=== PATIENT | female | born 1955 | race American Indian/Alaskan Native ===

== ENCOUNTER → 2018-06-29 | Day surgery (SDC) | payer MEDICARE ==
[~2018-06-29] MED LIST: DIPRIVAN 10 MG/ML IV ONE; NACL 0.9% 1000 ML 1,000 ML IV SCH; WATER FOR IRRIG STERILE IR ONE; XYLOCAINE MPF 2% ONE
--- NOTE | 2018-06-29 08:35 | Short Stay Summary ---
Short Stay Documentation - Allergies and Medications Current Medications: Allergies No Known Allergies Allergy (Verified 06/29/18 07:43) Home Medications Medication Instructions Recorded Confirmed Last Taken Type No Known Home Medications [No 06/29/18 06/29/18 Unknown History Reported Home Medications] Active Medications Sodium Chloride (Nacl 0.9% 1000 Ml) 1,000 mls @ 50 mls/hr IV DIRECT RENU Last Admin: 06/29/18 07:43 Dose: 50 mls/hr - Brief post op/procedure progress note Date of procedure: 06/29/18 Pre-op diagnosis: 1. Abnormal CT scan 2. Epigastric pain Post-op diagnosis: same (1. GERD 2. gastritis) Procedure: EGD with biopsy Anesthesia: MAC Findings: as above Surgeon: SUNG DOUGLASS Estimated blood loss: none Pathology: list (1. Antrum 2. Body of stomach) Specimen disposition: to lab Condition: stable - Disposition Condition at discharge: Stable Disposition: [id number] TO HOME OR SELFCARE Short Stay Discharge Plan Activity: no restrictions Weight Bearing Status: Full Weight Bearing Diet: regular Additional Instructions: Post Sedation D/C Instructions When you return home you may resume your regular diet unless otherwise directed. -Go directly home from the hospital and rest quietly. You may resume normal activities tomorrow. -Do NOT drive, return to work, operate any machinery or make any important personal or business decisions today. -Do NOT drink any alcohol or take nerve or sleeping drugs. They add to the effects of the medicine still present in your body. Follow up with: SAMANTHA GILES JR, MD [Primary Care Provider] - 7 Days
[2018-06-29 09:39] VITALS: BP 142/71
== END | disposition home or self-care (01) ==
LOC: GIO 06:24
PROVIDERS: ATTEND Internal Medicine Gastroenterology
DX: K29.50 Unspecified chronic gastritis without bleeding (principal); K21.9 Gastro-esophageal reflux disease without esophagitis; R93.5 Abnormal findings on diagnostic imaging of other abdominal regions, including retroperitoneum; K31.89 Other diseases of stomach and duodenum; K43.9 Ventral hernia without obstruction or gangrene
CPT/HCPCS: 43239; 88305; 88342; J2704; J7030